=== PATIENT | male | born 1935 | race Caucasian/White ===

== ENCOUNTER → 2019-11-04 | Outpatient (CLI) | payer OTHER, MEDICARE | LOC: SJCVCIMAG 07:56 | DX: I08.3 Combined rheumatic disorders of mitral, aortic and tricuspid valves (principal); I48.91 Unspecified atrial fibrillation; Z86.79 Personal history of other diseases of the circulatory system ==

== ENCOUNTER → 2020-02-09 | Outpatient (CLI) | payer OTHER, MEDICARE ==
[~2020-02-09] VITALS: Ht 175.3 cm; Wt 81.7 kg
[~2020-02-09] MED LIST: CRESTOR40 MG PO; FLEXERIL PO; GLUCOSAMINE &1 EACH PO; MULTIVITAMINS1 EAC7 PO; OLMESARTAN-HCT1 EACH PO; TOPAMAX SPRINKL PO; VITAMIN C500 M2 PO; XARELTO20 MG PO; ZETIA10 MG PO
--- NOTE | 2020-02-10 13:30 | P ---
[facility] [place] [address] PROCEDURE REPORT Name: SHRAVAN PALMER [facility] [id number] Admission: 02/09/20 Attend Phys: Frankie Zhang MD Discharge: Date of : 39 Report #: [id number] THIS REPORT FOR: cc: Frankie Leonard MD,Frankie Zhang,Frankie Ching MD ~ CC: Frankie Zhang DATE OF SERVICE: 02/09/2020 BRIEF HISTORY: The patient is an 84-year-old male with history of positive Cologuard, who presents for colonoscopy due to positive Cologuard. PREOPERATIVE DIAGNOSIS: Positive Cologuard. POSTOPERATIVE DIAGNOSES: Multiple colon polyps. MEDICATIONS: Deep sedation with propofol per Anesthesia. SPECIMENS: 1. Cecal polyp x 3. 2. Flat proximal ascending colon polyp. 3. Hepatic flexure polyp. 4. Proximal transverse colon polyp. 5. Mid transverse colon polyp. ESTIMATED BLOOD LOSS: 5 mL. PROCEDURE: Colonoscopy to cecum and terminal ileum with snare polypectomy, saline and Rhonda ink injection. FINDINGS: Prior to propofol sedation, procedure of colonoscopy discussed with the patient as well as potential risks and its complications. He indicates he understands and desires to proceed. DESCRIPTION OF PROCEDURE: With the patient in left lateral decubitus position, digital examination was completed, which revealed no abnormalities. Subsequently, the Olympus video colonoscope was introduced into the rectum, advanced under direct vision to the cecum. This was done with minimal difficulty. The cecum was identified by the ileocecal valve and the appendiceal orifice. I was able to advance the tip of the scope into the mouth of the ileocecal valve and very transiently, I was able to see a villous pattern, but could not advance the scope into the terminal ileum. At that point, the scope was slowly withdrawn and careful circumferential views were obtained. Upon slow [facility] [address] [place] [address] PROCEDURE REPORT Name: SPENCERSHRAVAN [place] Room #: REG [facility]#: [id number] Admission: 02/09/20 Attend Phys: Frankie Zhang MD Discharge: Date of : 39 Report #: [id number] withdrawal of the scope, the prep was noted to be excellent. The mucosa was within normal limits, normal vascular pattern, and normal light reflex. As we withdrew the scope, 3 polyps were found in the cecum. They were all diminutive polyps. Two of them were just several millimeters and removed by cold biopsy forceps. The third was about 5 mm, removed by cold snare polypectomy. Please note that it was not clear that this polyp was recovered in its container. It may have slipped through to the next container. The scope was withdrawn into the ascending colon, very proximal ascending colon, a flat polyp was seen. It was about 18-20 mm in length and 5-6 mm in width. It was elevated with saline and removed by multiple fragments with cold snare polypectomy and biopsy forceps were used to clean up edges. Unfortunately, part of the polyp was difficult to see, but as best we could determine, the entire polyp was removed. The site was closed with hemostatic clips. Then 2 Rhonda ink injections were placed laterally to the polypectomy site. The scope was further withdrawn and a 6 x 8 mm polyp, which was more flat than sessile, was seen and removed by cold snare polypectomy and recovered. In the proximal transverse colon, a flat mucus covered polyp was seen and also removed by cold snare polypectomy with several passes. It was about 10 mm in greatest dimension. Scope was further withdrawn and a 5 mm sessile polyp was seen in the mid transverse colon, removed by cold snare polypectomy and recovered. Scope was further withdrawn, no additional abnormalities were seen. The remainder of the examination of the colon was within normal limits. The scope was withdrawn in the rectum. Upon retroflexion, no abnormalities were seen. Scope was withdrawn. The patient tolerated the procedure well. CONDITION OF THE PATIENT UPON DISCHARGE: Following procedure, the patient drowsy, aroused, conversant and will be discharged to home when fully ambulatory. INSTRUCTIONS TO THE PATIENT AND FAMILY AT THE TIME OF DISCHARGE: The relatively large flat polyp in the proximal ascending colon was removed in a piecemeal fashion. There was some difficulty with complete visualization of the polyp. Therefore, I would suggest he return in 2 years for high risk screening due to the fact he had piecemeal removal of a flat polyp. I would base that recommendation on his health within 2 years. If his health is good and there appears to be reasonable longevity, followup colonoscopy should be considered. He will return to care of Dr. Frankie Leonard and return to see me as needed. <ELECTRONICALLY SIGNED> By: Frankie Zhang MD 02/10/20 1330 [id number] Frankie Zhang MD /norma
--- NOTE | 2020-02-10 17:06 | PATH ---
[facility] [place] [address] PATHOLOGY RPT PROCEDURE Name: SHRAVAN KELLY Room #: REG CL [facility].#: [id number] Admission: 02/09/20 Date of : 39 Discharge: Report #: [id number] Path Case #: [id number] [facility] Accession Number: [id number] . 01 Material submitted: . PART A: cecum - CECAL POLYP III PART B: colon - POLYP AT PROXIMAL ASCENDING COLON. Modifiers: proximal, ascending PART C: hepatic flexure - POLYP AT HEPATIC FLEXURE COLON PART D: colon - POLYP AT PROXIMAL TRANSVERSE COLON. Modifiers: proximal, transverse PART E: colon - POLYP AT MID TRANSVERSE COLON. Modifiers: mid, transverse . 01 Clinical history: . Blood in stool . 02 Diagnosis: A. Large bowel "cecal polyp", endoscopic biopsy: - Tubular adenoma; negative for high-grade dysplasia and malignancy. . B. Large bowel "polyp at proximal ascending colon", endoscopic biopsy: - Tubular adenoma; negative for high-grade dysplasia and malignancy. . C. Large bowel "polyp at hepatic flexure", endoscopic biopsy: - Tubular adenoma; negative for high-grade dysplasia and malignancy. . D. Large bowel "polyp at proximal transverse colon", endoscopic biopsy: - Sessile serrated adenoma/polyp; negative for high-grade dysplasia and malignancy. . E. Large bowel "polyp at mid transverse", endoscopic biopsy: - Tubular adenoma; negative for high-grade dysplasia and malignancy. (MLK:pit; 02/10/2020) [facility] 02/10/2020 1630 Local . 02 Electronically signed: . Jaleel Willis MD, Pathologist NPI- [id number] . 01 Gross description: . A. The specimen is received in formalin labeled "Shravan Kelly, cecal polyp" and consists of multiple fragments of jimenez tissue measuring 0.8 x 0.5 x 0.2 cm in aggregate which are entirely submitted in A1. . B. The specimen is received in formalin labeled "LeticiaShravan, polyp at proximal ascending" and consists of multiple fragments of pink-jimenez tissue and 2.2 x 0.7 x 0.3 cm in aggregate which are entirely submitted in B1. [facility] [address] [place] [address] PATHOLOGY RPT PROCEDURE Name: SHRAVAN KELLY [place] Room #: REG CLI [facility]#: [id number] Admission: 02/09/20 Date of : 39 Discharge: Report #: [id number] Path Case #: [id number] . C. The specimen is received in formalin labeled "Shravan Kelly, polyp at hepatic flexure" and consists of multiple fragments of pink-jimenez tissue measuring 1.8 x 0.3 x 0.2 cm in aggregate which are entirely submitted in C1. . D. The specimen is received in formalin labeled "Leticia, Shravan, polyp at proximal transverse colon" and consists of multiple fragments of pink-jimenez tissue measuring 1.2 x 0.6 x 0.2 cm in aggregate which are entirely submitted in D1. . E. The specimen is received in formalin labeled "Leticia, Shravan, polyp at mid transverse colon" and consists of 2 fragments of jimenez tissue measuring 0.8 x 0.2 x 0.2 cm in aggregate which are entirely submitted in E1. (GARETT; 02/09/2020) JF[facility]/GAUTAM 02/09/2020 1547 Local . 02 Pathologist provided ICD-10: D12.0, D12.2, D12.3 . 02 CPT . 972916, [id number], 638541, 630447, 801362 Specimen Comment: A courtesy copy of this report has been sent to [phone], [phone] Specimen Comment: [id number] Specimen Comment: Report sent to / DR ESTRELLA Performed at: [address], [place] [id number] MD Noah Page MD Phone: [phone] Performed at: [address] [id number] MD Aarti Townsend MD Phone: [phone]
== END | disposition home or self-care (01) ==
LOC: GI 07:37
PROVIDERS: ATTEND Specialist
DX: R19.5 Other fecal abnormalities (principal); D12.0 Benign neoplasm of cecum; D12.2 Benign neoplasm of ascending colon; D12.3 Benign neoplasm of transverse colon; I10 Essential (primary) hypertension; E78.00 Pure hypercholesterolemia, unspecified; G43.909 Migraine, unspecified, not intractable, without status migrainosus; Z98.890 Other specified postprocedural states; Z79.899 Other long term (current) drug therapy; Z79.01 Long term (current) use of anticoagulants; Z11.59 Encounter for screening for other viral diseases; Z98.42 Cataract extraction status, left eye; Z95.2 Presence of prosthetic heart valve; Z98.41 Cataract extraction status, right eye; Z86.73 Personal history of transient ischemic attack (TIA), and cerebral infarction without residual deficits
CPT/HCPCS: 62110; 62900